=== PATIENT | male | born 1970 | race Caucasian/White ===

== ENCOUNTER 2017-02-02 05:21 | Emergency (ER) | payer SELFPAY | END 2017-02-02 06:48 | disposition home or self-care (01) | LOC: D.ER 05:21 | DX: R07.89 Other chest pain (principal); R10.2 Pelvic and perineal pain; W01.0XXA Fall on same level from slipping, tripping and stumbling without subsequent striking against object, initial encounter; Y93.89 Activity, other specified; Y92.019 Unspecified place in single-family (private) house as the place of occurrence of the external cause; F17.200 Nicotine dependence, unspecified, uncomplicated ==